=== PATIENT | female | born 1975 | race American Indian/Alaskan Native ===

== ENCOUNTER 2021-01-15 07:14 | Emergency (ER) | payer OTHER ==
[2021-01-15 07:35] VITALS: BP 130/95
--- NOTE | 2021-01-15 08:47 | Emergency Department Report ---
ED ENT HPI - General Chief complaint: Upper Respiratory Infection Stated complaint: bodyaches Time Seen by Provider: 01/15/21 08:03 Source: patient Mode of arrival: Ambulatory Limitations: No Limitations - History of Present Illness Initial comments: 45-year-old female who denies any significant past medical history presents to the ER today with complaints of URI symptoms. Patient states that her symptoms started about 1 week ago. Patient states that she been having a lot of sinus pressure, generalized body aches, ringing in both ears, nasal congestion and burning sensation in her nose, and intermittent dry cough. She reports generalized fatigue. She denies any fever or chills. She denies any chest pain or shortness of breath, nausea, vomiting, abdominal pain or any additional symptoms at this time. She states that there have been a few outbreaks of Covid job, but denies any obvious ill contacts or recent travel. She has not taken a COVID-19 test since she has been 5. She has not taken any of the COVID-19 vaccines. She does admit to tobacco use MD complaint: other (Sinus pain, ringing in ears, burning nose, nasal congestion, body ache) -: week(s) (1) - Related Data Previous Rx's Medication Instructions Recorded Last Taken Type Amoxicillin [Trimox CAP] 500 mg PO Q8H #30 capsule 01/15/21 Unknown Rx Fluticasone [Flonase] 2 spray NS QDAY #1 bottle 01/15/21 Unknown Rx Ibuprofen [Motrin] 600 mg PO Q8H PRN #30 tablet 01/15/21 Unknown Rx Loratadine [Claritin] 10 mg PO DAILY #30 tablet 01/15/21 Unknown Rx Allergies Allergy/AdvReac Type Severity Reaction Status Date / Time No Known Allergies Allergy Unverified 01/15/21 07:35 ED Dental HPI - General Chief complaint: Upper Respiratory Infection Stated complaint: bodyaches Time Seen by Provider: 01/15/21 08:03 Source: patient Mode of arrival: Ambulatory Limitations: No Limitations - Related Data Previous Rx's Medication Instructions Recorded Last Taken Type Amoxicillin [Trimox CAP] 500 mg PO Q8H #30 capsule 01/15/21 Unknown Rx Fluticasone [Flonase] 2 spray NS QDAY #1 bottle 01/15/21 Unknown Rx Ibuprofen [Motrin] 600 mg PO Q8H PRN #30 tablet 01/15/21 Unknown Rx Loratadine [Claritin] 10 mg PO DAILY #30 tablet 01/15/21 Unknown Rx Allergies Allergy/AdvReac Type Severity Reaction Status Date / Time No Known Allergies Allergy Unverified 01/15/21 07:35 ED Review of Systems ROS: Stated complaint: bodyaches Other details as noted in HPI Comment: All other systems reviewed and negative Constitutional: denies: chills, fever Eyes: as per HPI ENT: ear pain, congestion, other (Sinus pressure, burning sensation in nose). denies: throat pain Respiratory: cough (Intermittent dry cough). denies: orthopnea, shortness of breath, SOB with exertion, SOB at rest, wheezing Cardiovascular: denies: chest pain, palpitations, dyspnea on exertion, edema, syncope, paroxysmal nocturnal dyspnea Gastrointestinal: denies: abdominal pain, nausea, diarrhea Genitourinary: denies: urgency, dysuria, frequency, hematuria, discharge, abnormal menses, dyspareunia Musculoskeletal: denies: back pain, joint swelling, arthralgia Skin: denies: rash, lesions, change in color, change in hair/nails, pruritus Neurological: headache. denies: weakness, numbness, paresthesias, confusion, abnormal gait, vertigo Psychiatric: denies: anxiety, depression, auditory hallucinations, visual hallucinations, homicidal thoughts, suicidal thoughts ED Past Medical Hx - Medications Home Medications: Home Medications Medication Instructions Recorded Confirmed Last Taken Type Amoxicillin [Trimox CAP] 500 mg PO Q8H #30 capsule 01/15/21 Unknown Rx Fluticasone [Flonase] 2 spray NS QDAY #1 bottle 01/15/21 Unknown Rx Ibuprofen [Motrin] 600 mg PO Q8H PRN #30 tablet 01/15/21 Unknown Rx Loratadine [Claritin] 10 mg PO DAILY #30 tablet 01/15/21 Unknown Rx ED Physical Exam - General Limitations: No Limitations General appearance: alert, in no apparent distress - Head Head exam: Present: atraumatic, normocephalic, normal inspection - Eye Eye exam: Present: normal appearance, PERRL, EOMI Pupils: Present: normal accommodation - ENT ENT exam: Present: other (Bilateral frontal sinus tenderness) - Expanded ENT Exam Expanded TM/Canal exam: Effusion: Right TM, Left TM Mouth exam: Present: normal external inspection Teeth exam: Present: normal inspection Throat exam: Positive: normal inspection - Neck Neck exam: Present: normal inspection, full ROM. Absent: meningismus - Respiratory Respiratory exam: Present: normal lung sounds bilaterally. Absent: respiratory distress, wheezes, rales, rhonchi - Cardiovascular Cardiovascular Exam: Present: regular rate, normal rhythm, normal heart sounds - GI/Abdominal GI/Abdominal exam: Present: soft. Absent: distended, tenderness, guarding, rebound - Neurological Exam Neurological exam: Present: alert, oriented X3, CN II-XII intact, normal gait - Psychiatric Psychiatric exam: Present: normal affect, normal mood - Skin Skin exam: Present: intact ED Course Vital Signs 01/15/21 07:33 Temperature 99.1 F Pulse Rate 101 H Respiratory 16 Rate Blood Pressure 130/95 [Left] O2 Sat by Pulse 98 Oximetry ED Medical Decision Making - Medical Decision Making 45-year-old female who denies any significant past medical history presents to the ER today with complaints of URI symptoms. Patient states that her symptoms started about 1 week ago. Patient states that she been having a lot of sinus pressure, generalized body aches, ringing in both ears, nasal congestion and burning sensation in her nose, and intermittent dry cough. She reports generalized fatigue. She denies any fever or chills. She denies any chest pain or shortness of breath, nausea, vomiting, abdominal pain or any additional symptoms at this time. She states that there have been a few outbreaks of Covid job, but denies any obvious ill contacts or recent travel. She has not taken a COVID-19 test since she has been 5. She has not taken any of the COVID-19 vaccines. She does admit to tobacco use. 0855: Patient is well-appearing, nontoxic and not in any acute pain or respiratory distress. She appears well-hydrated. She is neurologically intact with a normal gait chest is clear to auscultation. Patient does have frontal sinus tenderness on exam, given that her symptoms have been going on for a week, she will be treated for possible bacterial sinusitis with antibiotics, but I did recommend that she get a outpatient COVID-19 test to also rule out the possibility of Covid. Patient given a list of outpatient facilities where she can get COVID-19 test. Patient expressed understanding of instructions and agree with plan. Patient stable at time of discharge. Critical care attestation.: If time is entered above; I have spent that time in minutes in the direct care of this critically ill patient, excluding procedure time. ED Disposition Clinical Impression: Sinusitis, Viral syndrome Disposition: 01 HOME / SELF CARE / HOMELESS Is pt being admited?: No Does the pt Need Aspirin: No Condition: Stable Instructions: Sinusitis, Adult, [id number], Viral Illness, Adult Additional Instructions: The Claritin, Flonase and the amoxicillin which were prescribed to you today are to treat for sinus infection. You can take the ibuprofen as prescribed to help with any pain. Your symptoms are concerning for sinus infection, but given that we are in a pandemic, COVID-19 is in the differential of possibilities and I do recommend following up with local [facility] or urgent care for an outpatient COVID-19 test. In the meantime I recommend that you isolate and quarantine until you get your results back. Drink lots of fluids. Take a multivitamin. You can also follow-up with the primary care doctor listed on your discharge instructions and or ENT listed on your discharge instructions. Prescriptions: Loratadine [Claritin] 10 mg PO DAILY #30 tablet Fluticasone [Flonase] 2 spray NS QDAY #1 bottle Ibuprofen [Motrin] 600 mg PO Q8H PRN #30 tablet PRN Reason: Pain Amoxicillin [Trimox CAP] 500 mg PO Q8H #30 capsule Referrals: AZEEM LOWRY MD [Staff Physician] - 3-5 Days (Primary care physician) [facility] [Provider Group] - 3-5 Days (Primary care physician) DESTIN LEAHY MD [Staff Physician] - 3-5 Days (Primary care physician) Forms: Work/School Release Form(ED) Time of Disposition: 08:48 Print Language: DIVEHI
== END 2021-01-15 09:27 | disposition home or self-care (01) ==
LOC: ED 07:14
DX: B34.9 Viral infection, unspecified (principal); J32.9 Chronic sinusitis, unspecified
CPT/HCPCS: 99281